=== PATIENT | male | born 1975 | race Two or more races ===

== ENCOUNTER 2017-04-21 06:19 | Day surgery (SDC) | payer BC ==
[2017-04-21 06:51] LABS: POC GLUCOSE 121 mg/dL (70-99)
[2017-04-21] MEDS ORDERED: HYDROmorphone 2 MG/ML VIAL IV (07:00)
[2017-04-21] MEDS ORDERED: ONDANSETRON PF 4 MG/2 ML VIAL. IV (07:00)
[2017-04-21] MEDS ORDERED: fentaNYL PF VIAL 100 MCG/2 ML VIAL IV (07:00)
[2017-04-21] MEDS ORDERED: LIDOCAINE 1% PF 2 ML VIAL. ID (07:00)
[2017-04-21] MEDS: IV RINGERS,LACTATED 1000ML 1,000 ML IV (07:01)
[2017-04-21] MEDS ORDERED: PROPOFOL 20 ML IV ×2 (07:16→08:03)
[2017-04-21] MEDS ORDERED: DEXAMETHASONE SOD PHOS 20 MG/5 ML VIAL. (07:16)
[2017-04-21] MEDS ORDERED: LIDOCAINE 2% PF Vial for OR 5 ML VIAL. (07:16)
[2017-04-21] MEDS ORDERED: ONDANSETRON PF 4 MG/2 ML VIAL. (07:16)
[2017-04-21] MEDS ORDERED: fentaNYL PF VIAL 100 MCG/2 ML VIAL ×2 (07:17→08:28)
[2017-04-21] MEDS ORDERED: MIDAZOLAM HCL/PF 2 MG/2 ML VIAL. (07:17)
[2017-04-21] MEDS: EPINEPHrine VIAL 30 MG/30 ML VIAL (07:51)
[2017-04-21] MEDS: LIDOCAINE 1% PF 30 ML VIAL. (07:51)
[2017-04-21] MEDS: BUPIVACAINE MPF 0.5% 30 ML VIAL. (07:51)
[2017-04-21] MEDS ORDERED: SEVOFLURANE 61 TO 120 MINUTES. IH (08:03)
[2017-04-21] MEDS ORDERED: MEPERIDINE PF 25 MG/ML VIAL. (08:28)
[2017-04-21 08:35] LABS: POC GLUCOSE 146 mg/dL (70-99)
[2017-04-21] MEDS: fentaNYL PF VIAL 100 MCG/2 ML VIAL IV ×2 (08:41→08:49)
[2017-04-21] MEDS: MEPERIDINE PF 25 MG/ML VIAL. IV (08:49)
[2017-04-21] MEDS: PROCHLORPERAZINE 10 MG/2 ML VIAL. IV ×2 (08:56→09:24)
[2017-04-21] MEDS: MORPHINE SULFATE 2 MG/ML DISP.SYRIN. IV ×4 (08:57→09:38)
[2017-04-21] MEDS: HYDROcodone/APAP 5/325MG 1 TAB TABLET PO (09:19)
== END 2017-04-21 10:14 | disposition home or self-care (01) ==
LOC: SURG 06:19
DX: S83.242A Other tear of medial meniscus, current injury, left knee, initial encounter (principal); X58.XXXA Exposure to other specified factors, initial encounter; Y93.89 Activity, other specified; Y92.89 Other specified places as the place of occurrence of the external cause; Y99.8 Other external cause status; E78.00 Pure hypercholesterolemia, unspecified; I10 Essential (primary) hypertension; E66.9 Obesity, unspecified; Z68.35 Body mass index [BMI] 35.0-35.9, adult; E11.9 Type 2 diabetes mellitus without complications; Z72.89 Other problems related to lifestyle; Z87.39 Personal history of other diseases of the musculoskeletal system and connective tissue; Z87.891 Personal history of nicotine dependence
CPT/HCPCS: 29881; 82962; J0171; J0780; J1100; J2175; J2250; J2270; J2405; J2704; J3010; J3490